=== PATIENT | female | born 1990 | race Caucasian/White ===

== ENCOUNTER 2017-08-28 17:33 | Emergency (ER) | payer OTHER ==
[~2017-08-28] VITALS: Ht 167.6 cm; Wt 72.6 kg
[2017-08-28] MEDS ORDERED: PREDNISONE20 MG PO (18:33)
== END 2017-08-28 18:46 | disposition home or self-care (01) ==
LOC: ED 17:33
DX: T78.1XXA Other adverse food reactions, not elsewhere classified, initial encounter (principal); L27.2 Dermatitis due to ingested food; Z88.1 Allergy status to other antibiotic agents
CPT/HCPCS: 99284; J7512; Q0163

== ENCOUNTER 2018-02-05 12:24 | Emergency (ER) | payer SELFPAY ==
[~2018-02-05] VITALS: Ht 167.6 cm; Wt 72.6 kg
[~2018-02-05 12:24] MED LIST: PREDNISONE20 MG PO
== END 2018-02-05 13:11 | disposition short-term general hospital (02) ==
LOC: ED 12:24
DX: S61.512A Laceration without foreign body of left wrist, initial encounter (principal); W45.8XXA Other foreign body or object entering through skin, initial encounter

== ENCOUNTER 2018-12-02 11:25 | Emergency (ER) | payer SELFPAY ==
[~2018-12-02] VITALS: Ht 167.6 cm; Wt 80.7 kg
[2018-12-02] MEDS ORDERED: HALOPERIDOL5 MG PO (14:14)
== END 2018-12-02 14:30 | disposition home or self-care (01) ==
LOC: ED 11:25
DX: R11.10 Vomiting, unspecified (principal); R10.13 Epigastric pain; Z88.1 Allergy status to other antibiotic agents
CPT/HCPCS: 80053; 81001; 83690; 84703; 85025; 96361; 96374; 96375; 99284-25; J1200; J1630; J2405; J2550; J7030

== ENCOUNTER 2020-03-01 17:39 | Inpatient (IN) | payer OTHER ==
[~2020-03-01] VITALS: Ht 167.6 cm; Wt 110.0 kg
--- NOTE | ~2020-03-01 | OR ---
[facility] [address], [place] [address] Draft DATE OF OPERATION: 03/03/2020 SURGEON: Jarred Moura DO PREOPERATIVE DIAGNOSES: 1. Intrauterine at 39 weeks and 2 days gestation. 2. Failure to descend. 3. Persistent OP positioning. 4. Suspected macrosomia. 5. Obesity. POSTOPERATIVE DIAGNOSES: 1. Intrauterine at 39 weeks and 2 days gestation. 2. Failure to descend. 3. Persistent OP positioning. 4. Suspected macrosomia. 5. Obesity. PROCEDURE PERFORMED: Primary low transverse delivery. ANESTHESIA: Epidural. DOMINATRIX: Anthony Kamara MD. ESTIMATED BLOOD LOSS: 750 mL. FINDINGS: Viable male , 8 pounds 14 ounces with Apgars of 6 and 8 with nuchal x2, delivered in the occiput posterior positioning with significant molding of the vertex. Normal uterus, tubes, and ovaries. COMPLICATIONS: None. INDICATIONS: Ms. Turner is a very pleasant 29-year-old, G1, P0, white female, who presents to Labor PATIENT NAME: RUTH TURNER OPERATIVE REPORT DATE OF : [birth year] REPORT #: [id number] PHYSICIAN: JARRED MOURA DO PCP: NO PRIMARY CARE PHYSICIAN REPORT IS CONFIDENTIAL AND NOT TO BE RELEASED WITHOUT AUTHORIZATION [facility] [address] [place] [id number] Draft and Delivery for scheduled induction of labor. complicated by obesity and suspected macrosomia. She received Cytotec ripening and AROM was performed. She progressed to 9 cm, but remained at 9 cm for an extended period of time. IUPC was then placed and contractions were found to be inadequate and contractions were then augmented with IV Pitocin. Contractions then adequate and the patient progressed to 10 cm. She pushed with contractions for nearly an hour and no descent was noted. Persistent OP positioning was observed and gentle attempts at rotating the vertex were unsuccessful. Decision was made to proceed with primary low transverse delivery. Risks, benefits, and alternatives were discussed in detail with the patient. The patient understands and wished to proceed with the procedure. DESCRIPTION OF PROCEDURE: The patient was taken to the operating room, where a time-out was performed to confirm correct patient, correct procedure. Epidural anesthetic was already in place and was bolused and found to be adequate. Ancef 2 g IV were given preoperatively and no heparin was indicated. Rodriguez catheter was previously in place. The patient was then prepped and draped in the supine position with a bump under the right hip. Once epidural anesthetic was found to be adequate, a Pfannenstiel skin incision was made and carried down to the fascia. The fascia was nicked in the midline. Fascial incision was extended bilaterally using Farley scissors. Fascia was grasped with Frederic's, elevated, and the underlying rectus muscles were dissected off bluntly and sharply. Rectus muscles were divided in the midline and the peritoneum were grasped with hemostats, elevated and entered sharply. Peritoneal incision was extended cephalad, caudad using blunt and sharp dissection. The uterus was palpated and found to be normal without adhesions. An Damien self retractor was placed. The lower uterine segment identified. Hysterotomy was performed using a surgical scalpel for moderate amount of clear fluid. The surgeon's hand was placed in the uterine cavity, the head elevated into the abdomen and delivered with the assistance of fundal pressure. Persistent occiput positioning was again noted and nuchal x2 was noted. This was easily reduced and the remainder of the was delivered with the assistance of fundal pressure. The was vigorous, cried at delivery. Cord was doubly clamped and cut, and the handed to the awaiting Pediatric team for further care. Cord blood was obtained and the placenta was manually expressed intact with a centrally inserted 3-vessel cord. The uterus was cleared of any remaining products of conception or clot. Hysterotomy was then repaired using 0 Vicryl in a running locked manner with a second imbricating stitch in a vertical manner both with 0 Vicryl. The patient was given Pitocin per protocol once the placenta had delivered. The pelvis was irrigated. Small amount of oozing was noted in the midline, this was made hemostatic with a pvenfy-id-symnk of 0 Vicryl. The serosal edges were noted to be oozing, these were made hemostatic with Bovie electrocautery. The pelvis was again irrigated and found to be hemostatic. Normal ovaries and fallopian tubes were noted bilaterally. The Damien self retractor was removed and the lower segment again noted to be hemostatic. ACell sheet was applied to PATIENT NAME: RUTH TURNER OPERATIVE REPORT DATE OF : 91 REPORT #: [id number] PHYSICIAN: JARRED MOURA DO PCP: NO PRIMARY CARE PHYSICIAN REPORT IS CONFIDENTIAL AND NOT TO BE RELEASED WITHOUT AUTHORIZATION [facility] [address], [place] [address] Draft the lower uterine segment. Peritoneum was reapproximated using 2-0 Vicryl in a running nonlocked manner. The rectus was reapproximated using 0 Vicryl in 3 interrupted sutures of 0 Vicryl. Rectus was noted to be hemostatic and ACell powder was applied to the rectus sheath. Fascia was then reapproximated using 0 Vicryl in a running nonlocked manner. Subcu was examined and made hemostatic with Bovie electrocautery and then irrigated. Hemostasis was confirmed and subcu was reapproximated using 2-0 Vicryl in a running nonlocked manner. Skin was reapproximated using surgical thomas. The uterus was Crede'd for scant amount of blood and the patient was taken to PACU in good and stable condition. Sponge, needle, and instrument counts were correct x2 at the end of the procedure. Dr. Kamara was present and participated in all portions of procedure. Jarred Moura DO JDW/MODL /[id number] Copies: ~ PATIENT NAME: RUTH TURNER OPERATIVE REPORT DATE OF : 91 REPORT #: [id number] PHYSICIAN: JARRED MOURA DO PCP: NO PRIMARY CARE PHYSICIAN REPORT IS CONFIDENTIAL AND NOT TO BE RELEASED WITHOUT AUTHORIZATION
[~2020-03-01 17:39] MED LIST changes: +HALOPERIDOL5 MG PO
[2020-03-02] MEDS ORDERED: VITAFOL-OB+DHA1 EACH PO (01:08)
--- NOTE | 2020-03-02 12:27 | PR ---
[facility] [address] [place], [place] [address] Signed Progress Notes IP Datetime Report Generated by KENAN: 03/02/2020 12:27 PROGRESS NOTES: [id number] Impression: Normal progression of labor; Reactive non-stress test Procedures: Artificial ROM; Sterile Vag Exam Plan: Continue present management Informed Consent Obtain: Vaginal Delivery VITAL SIGNS: [id number] Vital Signs: Reviewed; Within Normal Limits EXAM: [id number] Dilatation: 3.0 Effacement: 70 Station: -2 Uterine Contractions: q 2-3 min MEMBRANES: [id number] Comments: Pt seen and examined. Doing well. Mild cramping. No bleeding or LOF. Cervix now ripe. Discussed AROM and pt understands and agrees. vertex confirmed well applied to cervix. AROM performed for moderate amount clear fluid. Mother and baby tolerated well. Expectantly manage. Discussed indications for pitocin augmentation if required. All questions answered Fetus A: [id number] FHR Baseline: 140 Variability: Moderate 6-25bpm Accelerations: 15X15 Decelerations: None FHR Category: Category I Presentation: Vertex Other Presentation: KYLE Comments on Fetus A: No evidence of metabolic acidosis Fetus B: [id number] Signing Physician: Jarred Moura DO Copies: ~ *Electronically Signed* 03/02/20 1227 JARRED MOURA DO PATIENT NAME: RUTH TORRE PROGRESS NOTE DATE OF : 91 PHYSICIAN: JARRED MOURA DO RPT #: [id number] REPORT IS CONFIDENTIAL AND NOT TO BE RELEASED WITHOUT AUTHORIZATION
--- NOTE | 2020-03-02 20:40 | PR ---
[facility] [address] [place], [place] [address] Signed Progress Notes IP Datetime Report Generated by KENAN: 03/02/2020 20:40 PROGRESS NOTES: [id number] Impression: Normal progression of labor; Reassuring heart rate Procedures: Sterile Vag Exam Plan: Continue present management; Anticipate Vaginal Delivery Informed Consent Obtain: Vaginal Delivery VITAL SIGNS: [id number] Vital Signs: Reviewed VS Notable Details: Mild tachycardia EXAM: [id number] Dilatation: 9.5 Effacement: 90 Station: -1 Uterine Contractions: q 2-3 minutes MEMBRANES: [id number] Comments: Pt seen and examined. Doing well. Comfortable w/ epidural. FHT reassuring and vertex descending into the pelvis with some minimal caput. Reviewed recent US, EFW, and anticipated course of labor. Will continue maternal repositioning. All questions answered. Fetus A: [id number] FHR Baseline: 140 Variability: Moderate 6-25bpm Accelerations: 15X15 Decelerations: None FHR Category: Category I Presentation: Vertex Other Presentation: KYLE Comments on Fetus A: No evidence of metabolic acidosis Fetus B: [id number] Signing Physician: Jarred Moura DO Copies: ~ *Electronically Signed* 03/02/202039 JARRED MOURA DO PATIENT NAME: RUTH TORRE PROGRESS NOTE DATE OF : 91 PHYSICIAN: JARRED MOURA #: [id number] REPORT IS CONFIDENTIAL AND NOT TO BE RELEASED WITHOUT AUTHORIZATION
--- NOTE | 2020-03-02 22:04 | PR ---
[facility] [address] [place], [place] [address] Signed Progress Notes IP Datetime Report Generated by KENAN: 03/02/2020 22:04 PROGRESS NOTES: [id number] Impression: Normal progression of labor; Reassuring heart rate; Slow Progression of Labor Procedures: Intrauterine Pressure Catheter; Sterile Vag Exam Plan: Continue present management Informed Consent Obtain: Vaginal Delivery Other Informed Consents: Reviewed indications for if needed VITAL SIGNS: [id number] Vital Signs: Reviewed VS Notable Details: Mild tachycardia EXAM: [id number] Dilatation: 9.0 Effacement: 90 Station: -1 Uterine Contractions: q 3 minutes MEMBRANES: [id number] Comments: Pt seen and examined. Doing well. Comfortable w/ contractions. Again no change noted on cervix exam. Discussed slow rate of cervical change. Reviewed pelvis feels adequate as well as size. Recommended IUPC to evaluate for adequacy of uterine contractions. Pt understands and agrees. IUPC placed without difficulty. Discussed if contractions and no cervical change noted in the near future, would need to consider delivery via primary LTCS. If ctxs inadequate and no cervical change, would augment w/ pitocin. All questions answered to best of my ability and to pts apparent satisfaction. Fetus A: [id number] FHR Baseline: 140 Variability: Moderate 6-25bpm Accelerations: 15X15 Decelerations: None FHR Category: Category I Presentation: Vertex Other Presentation: ROT Comments on Fetus A: No evidence of metabolic acidosis Fetus B: [id number] Signing Physician: Jarred Moura DO *Electronically Signed* 03/02/204 MOURA,JARRED Messer DO PATIENT NAME: RUTH TORRE PROGRESS NOTE DATE OF : 91 PHYSICIAN: JARRED MOURA DO RPT #: [id number] REPORT IS CONFIDENTIAL AND NOT TO BE RELEASED WITHOUT AUTHORIZATION [address] [place] [address] Signed Copies: ~ *Electronically Signed* 03/02/202203 MOURA,JARRED Messer DO PATIENT NAME: RUTH TORRE CONY PROGRESS NOTE DATE OF : 91 PHYSICIAN: JARRED MOURA DO RPT #: [id number] REPORT IS CONFIDENTIAL AND NOT TO BE RELEASED WITHOUT AUTHORIZATION
--- NOTE | 2020-03-02 22:15 | PR ---
[facility] [address] [place], [place] [address] Signed Progress Notes IP Datetime Report Generated by CPN: 03/02/2020 22:15 PROGRESS NOTES: [id number] Impression: Reassuring heart rate Other Impressions: Inadequate CTXs Procedures: Intrauterine Pressure Catheter; Sterile Vag Exam Plan: Augmentation Informed Consent Obtain: Vaginal Delivery Other Informed Consents: Reviewed indications for if needed VITAL SIGNS: [id number] Vital Signs: Reviewed VS Notable Details: Mild tachycardia EXAM: [id number] Dilatation: 9.0 Effacement: 90 Station: -1 Uterine Contractions: q 3 minutes MEMBRANES: [id number] Comments: Pt seen and evaluated. Reviewed CTXs inadequate as well as reassuring FHT. Recommended initation of low dose pitocin per protocol. Pt and partner understand and agree. Fetus A: [id number] FHR Baseline: 140 Variability: Moderate 6-25bpm Accelerations: 15X15 Decelerations: None FHR Category: Category I Presentation: Vertex Other Presentation: ROT Comments on Fetus A: No evidence of metabolic acidosis Fetus B: [id number] Signing Physician: Jarred Moura DO Copies: ~ *Electronically Signed* 03/02/20 4642 JARRED MOURA DO PATIENT NAME: RUTH TORRE PROGRESS NOTE DATE OF : 91 PHYSICIAN: JARRED MOURA #: [id number] REPORT IS CONFIDENTIAL AND NOT TO BE RELEASED WITHOUT AUTHORIZATION
--- NOTE | 2020-03-03 01:11 | PR ---
[facility] [address] [place], [place] [address] Signed Progress Notes IP Datetime Report Generated by KENAN: 03/03/2020 01:11 PROGRESS NOTES: [id number] Impression: Reassuring heart rate; Slow Progression of Labor Other Impressions: Inadequate CTXs Procedures: Sterile Vag Exam Plan: Continue present management; Anesthesia consult Informed Consent Obtain: Vaginal Delivery; Section Delivery Other Informed Consents: Reviewed indications for if needed VITAL SIGNS: [id number] Vital Signs: Reviewed VS Notable Details: slightly elevated bps w/ discomfort EXAM: [id number] Dilatation: 9.5 Effacement: 100 Station: 0 Uterine Contractions: q 2-4 min MEMBRANES: [id number] Comments: Pt seen and examined. Becoming much more uncomfortable w/ contractions and requesting rebolus of epidural. Exam shows station significantly lower with small rim of easily reducible cervix posteriorily. Discussed prolonged labor, however ctxs have been borderline adequate with pitocin. Again pelvis feels adequate. Discussed options for continued trial of labor vs , and pt and partner would like to continue with trial of labor. Discussed risks of shoulder dystocia. Will monitor second stage of labor closely. Pt understands and agrees. Anesthsia notified and en route to evaluate pt. Fetus A: [id number] FHR Baseline: 130 Variability: Moderate 6-25bpm Accelerations: 15X15 Decelerations: None FHR Category: Category I Presentation: Vertex Other Presentation: KYLE Comments on Fetus A: No evidence of metabolic acidosis Fetus B: [id number] Signing Physician: Jarred Moura DO *Electronically Signed* 03/03/20 0111 JARRED MOURA DO PATIENT NAME: RUTH TORRE PROGRESS NOTE DATE OF : 91 PHYSICIAN: JARRED MOURA DO RPT #: [id number] REPORT IS CONFIDENTIAL AND NOT TO BE RELEASED WITHOUT AUTHORIZATION [facility] [address] [place] [address] Signed Copies: ~ *Electronically Signed* 03/03/20 0111 JARRED MOURA DO PATIENT NAME: RUTH TORRE PROGRESS NOTE DATE OF : 91 PHYSICIAN: JARRED MOURA DO RPT #: [id number] REPORT IS CONFIDENTIAL AND NOT TO BE RELEASED WITHOUT AUTHORIZATION
--- NOTE | 2020-03-03 01:12 | PR ---
[facility] [address] [place], [place] [address] Signed Progress Notes IP Datetime Report Generated by KENAN: 03/03/2020 01:12 PROGRESS NOTES: [id number] Impression: Reassuring heart rate; Slow Progression of Labor Other Impressions: Inadequate CTXs Procedures: Sterile Vag Exam Plan: Continue present management; Anesthesia consult Informed Consent Obtain: Vaginal Delivery; Section Delivery Other Informed Consents: Reviewed indications for if needed VITAL SIGNS: [id number] Vital Signs: Reviewed VS Notable Details: slightly elevated bps w/ discomfort EXAM: [id number] Dilatation: 9.5 Effacement: 100 Station: 0 Uterine Contractions: q 2-4 min MEMBRANES: [id number] Comments: Pt seen and examined. Becoming much more uncomfortable w/ contractions and requesting rebolus of epidural. Exam shows station significantly lower with small rim of easily reducible cervix posteriorily. Discussed prolonged labor, however ctxs have been borderline adequate with pitocin. Again pelvis feels adequate. Discussed options for continued trial of labor vs , and pt and partner would like to continue with trial of labor. Discussed risks of shoulder dystocia. Will monitor second stage of labor closely. Pt understands and agrees. Anesthsia notified and en route to evaluate pt. Fetus A: [id number] FHR Baseline: 130 Variability: Moderate 6-25bpm Accelerations: 15X15 Decelerations: None FHR Category: Category I Presentation: Vertex Other Presentation: KYLE Comments on Fetus A: No evidence of metabolic acidosis Fetus B: [id number] Signing Physician: Jarred Moura DO *Electronically Signed* 03/03/20 0112 JARRED MOURA DO PATIENT NAME: RUTH TORRE PROGRESS NOTE DATE OF : 91 PHYSICIAN: JARRED MUORA DO RPT #: [id number] REPORT IS CONFIDENTIAL AND NOT TO BE RELEASED WITHOUT AUTHORIZATION [facility] [address] [place] [address] Signed Copies: ~ *Electronically Signed* 03/03/20 0112 JARRED MOURA DO PATIENT NAME: RUTH TORRE PROGRESS NOTE DATE OF : 91 PHYSICIAN: JARRED MOURA DO RPT #: [id number] REPORT IS CONFIDENTIAL AND NOT TO BE RELEASED WITHOUT AUTHORIZATION
--- NOTE | 2020-03-03 02:00 | PR ---
[place] [facility] [address] [place], [place] [address] Signed Progress Notes IP Datetime Report Generated by CPChidi: 03/03/2020 02:00 PROGRESS NOTES: [id number] Impression: Reassuring heart rate; Slow Progression of Labor Other Impressions: Inadequate CTXs Procedures: Sterile Vag Exam Plan: Continue present management; Anticipate Vaginal Delivery Informed Consent Obtain: Vaginal Delivery Other Informed Consents: Reviewed indications for if needed VITAL SIGNS: [id number] Vital Signs: Reviewed VS Notable Details: Mild tachycardia EXAM: [id number] Dilatation: 10.0 Effacement: 100 Station: 1 Uterine Contractions: Irregular MEMBRANES: [id number] Comments: Pt seen and examined. Doing well. Comfortable w/ contractions. Pt now complete and +1 station. Moderate caput noted. Will start pushing and monitor progress closely. Fetus A: [id number] FHR Baseline: 125 Variability: Moderate 6-25bpm Accelerations: 15X15 Decelerations: Variable FHR Category: Category II Presentation: Vertex Other Presentation: KYLE Comments on Fetus A: No evidence of metabolic acidosis Fetus B: [id number] Signing Physician: Jarred Moura DO Copies: ~ *Electronically Signed* 03/03/20 0200 JARRED MOUAR DO PATIENT NAME: RUTH TORRE PROGRESS NOTE DATE OF : 91 PHYSICIAN: JARRED MOURA #: [id number] REPORT IS CONFIDENTIAL AND NOT TO BE RELEASED WITHOUT AUTHORIZATION
--- NOTE | 2020-03-03 03:03 | PR ---
[facility] [address] [place], [place] [address] Signed Progress Notes IP Datetime Report Generated by KENAN: 03/03/2020 03:03 PROGRESS NOTES: [id number] Impression: Arrest of dilatation/descent; Reassuring heart rate Other Impressions: Inadequate CTXs Procedures: Sterile Vag Exam Plan: Deliver- Section Informed Consent Obtain: Section Delivery; Risks, Benefits and Alternatives Discussed Other Informed Consents: Reviewed indications for if needed VITAL SIGNS: [id number] Vital Signs: Reviewed; Within Normal Limits VS Notable Details: Mild tachycardia EXAM: [id number] Dilatation: 10.0 Effacement: 100 Station: -1 Uterine Contractions: q 2-4 MEMBRANES: [id number] Comments: Pushed w/ pt for nearly one hour. No descent with adequate pushing effort noted and caput significantly increased. Persistant OP positioning noted despite efforts to encourage rotation of the vertex. Reviewed course of labor, suspected macrosomia, and no progress w/ pushing. Recommended primary low transverse delivery. Pt and partner understand and agree. Reviewed risks and benefits in detail, including but not limited to infection, bleeding, injury to surrounding GI/ structures, and risks in future pregnancies including repeat and risk of abnormal placentation. Consents signed. Fetus A: [id number] FHR Baseline: 130 Variability: Moderate 6-25bpm Accelerations: 15X15 Decelerations: None FHR Category: Category I Presentation: Vertex Other Presentation: KYLE Comments on Fetus A: No evidence of metabolic acidosis Fetus B: [id number] Signing Physician: Jarred Moura DO *Electronically Signed* 03/03/20 030 JARRED MOURA DO PATIENT NAME: RUTH TORRE PROGRESS NOTE DATE OF : 91 PHYSICIAN: JARRED MOURA DO RPT #: [id number] REPORT IS CONFIDENTIAL AND NOT TO BE RELEASED WITHOUT AUTHORIZATION [facility] [address] [place] [address] Signed Copies: ~ *Electronically Signed* 03/03/20302 MOURAJARRED DO PATIENT NAME: RUTH TORRE PROGRESS NOTE DATE OF : 91 PHYSICIAN: JARRED MOURA DO RPT #: [id number] REPORT IS CONFIDENTIAL AND NOT TO BE RELEASED WITHOUT AUTHORIZATION
--- NOTE | 2020-03-03 04:56 | NUR ---
03/03/20 0456 Penny Barksdale 0445-PATIENT ARRIVED BACK TO ROOM 105 FOR PACU RECOVERY. PATIENT AWAKE DENIES PAIN OR NAUSEA. LR WITH PITOCIN INFUSING TO RIGHT HAND. NELSON DRAINING URINE. FUNDUS MIDLINE AT UMBILICUS LIGHT RUBRA DRAINAGE ON CHRISTIAN PAD. AT BEDSIDE. SR. RA 98% RR EVEN 0455-SPINAL AT T10. PATIENT AWAKE DENIES PAIN OR NAUSEA. TALKING TO MOM ON PHONE.
--- NOTE | 2020-03-03 10:38 | PR ---
[facility] [address] [facility] [place], [place] [address] Signed PP Progress Notes Datetime Report Generated by CPN: 03/03/2020 10:38 SUBJECTIVE: [id number] Pain: Within normal limits Nausea/Vomiting: Denies Flatus: Yes Bowel Movement: No Vital Signs: [id number] Vital Signs: Reviewed; Within Normal Limits EXAM: [id number] Cardiovascular: Normal Respiratory: Normal Abdomen/Uterus: Normal Lochia: Normal Vulva/Perineum: Not Done Breasts: Normal CVA Tenderness: Normal Extremities: Normal Incision: Normal Progress: Normal Exam Comments: Fundus firm U-2 nontender IMPRESSION/PLAN/PROCEDURES: [id number] Impression: Normal progression Plan: Continue present management Signing Physician: Jarred Moura DO Copies: ~ *Electronically Signed* 03/03/20 1038 JARRED MOURA DO PATIENT NAME: RUTH TORRE PROGRESS NOTE DATE OF : 91 PHYSICIAN: JARRED MOURA DO RPT #: [id number] REPORT IS CONFIDENTIAL AND NOT TO BE RELEASED WITHOUT AUTHORIZATION
--- NOTE | 2020-03-04 10:15 | PR ---
[facility] [address] [place] [facility] [place] [address] Signed PP Progress Notes Datetime Report Generated by CPN: 03/04/2020 10:15 SUBJECTIVE: [id number] Pain: Within normal limits Nausea/Vomiting: Denies Flatus: Yes Bowel Movement: No Vital Signs: [id number] Vital Signs: Reviewed EXAM: [id number] Cardiovascular: Normal Respiratory: Normal Abdomen/Uterus: Normal Lochia: Normal Vulva/Perineum: Not Done Breasts: Not Done CVA Tenderness: Normal Extremities: Normal Incision: Normal Progress: Normal Exam Comments: Fundus firm U-2 nontender IMPRESSION/PLAN/PROCEDURES: [id number] Impression: Normal progression Plan: Discharge Signing Physician: Jarred Moura DO Copies: ~ *Electronically Signed* 03/04/20 1015 JARRED MOURA DO PATIENT NAME: RUTH TORRE PROGRESS NOTE DATE OF : 91 PHYSICIAN: JARRED MOURA DO RPT #: [id number] REPORT IS CONFIDENTIAL AND NOT TO BE RELEASED WITHOUT AUTHORIZATION
== END 2020-03-04 12:43 | disposition home or self-care (01) | DRG 787 ==
LOC: EDBD → FBC 03-02 00:06
PROVIDERS: ADMIT Obstetrics & Gynecology
PROC: 10907ZC Drainage of Amniotic Fluid, Therapeutic from Products of Conception, Via Natural or Artificial Opening (ICD-10-PCS; 2020-03-02)
PROC: 10H07YZ Insertion of Other Device into Products of Conception, Via Natural or Artificial Opening (ICD-10-PCS; 2020-03-02)
PROC: 3E0P7VZ Introduction of Hormone into Female Reproductive, Via Natural or Artificial Opening (ICD-10-PCS; 2020-03-02)
PROC: 00HU33Z Insertion of Infusion Device into Spinal Canal, Percutaneous Approach (ICD-10-PCS; 2020-03-02)
PROC: 3E0R3BZ Introduction of Anesthetic Agent into Spinal Canal, Percutaneous Approach (ICD-10-PCS; 2020-03-02)
PROC: 10D00Z1 Extraction of Products of Conception, Low, Open Approach (ICD-10-PCS; principal; 2020-03-03 03:55)
DX: O36.63X0 Maternal care for excessive fetal growth, third trimester, not applicable or unspecified (principal); O99.324 Drug use complicating childbirth; O63.9 Long labor, unspecified; Z3A.39 39 weeks gestation of pregnancy; Z37.0 Single live birth; O76 Abnormality in fetal heart rate and rhythm complicating labor and delivery; O69.81X0 Labor and delivery complicated by cord around neck, without compression, not applicable or unspecified; O99.214 Obesity complicating childbirth; E66.9 Obesity, unspecified; F12.90 Cannabis use, unspecified, uncomplicated; O34.43 Maternal care for other abnormalities of cervix, third trimester; O62.1 Secondary uterine inertia; O32.4XX0 Maternal care for high head at term, not applicable or unspecified; Z88.8 Allergy status to other drugs, medicaments and biological substances
CPT/HCPCS: 01961; 36415; 85027; A9270; J0690; J1650; J1885; J2001; J2274; J2370; J2405; J2590; J2795; J7121

== ENCOUNTER 2020-04-13 19:52 | Emergency (ER) | payer OTHER ==
[~2020-04-13] VITALS: Ht 167.6 cm; Wt 90.7 kg
[~2020-04-13 19:52] MED LIST changes: +VITAFOL-OB+DHA1 EACH PO
[2020-04-13] MEDS ORDERED: PROTONIX40 MG PO (20:51)
[2020-04-13] MEDS ORDERED: ZOFRAN4 MG PO (20:51)
== END 2020-04-13 20:58 | disposition home or self-care (01) ==
LOC: ED 19:52
DX: O99.63 Diseases of the digestive system complicating the puerperium (principal); K29.70 Gastritis, unspecified, without bleeding
CPT/HCPCS: 80053; 84703; 85025; 85610; 85730; 96374; 99284-25; C9113

== ENCOUNTER 2022-08-01 11:39 | Emergency (ER) | payer OTHER ==
[~2022-08-01] VITALS: Ht 167.6 cm; Wt 90.7 kg
[~2022-08-01 11:39] MED LIST changes: +PROTONIX40 MG PO; +ZOFRAN4 MG PO
--- OUTSIDE RECORDS SUMMARY | 2022-08-01 11:42 | XMS ---
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 Paco has no Care Guidelines for this patient. Ivy VISIT COUNT (12 MO.) 1 DON [place] TOTAL 1 NOTE: Visits indicate total known visits. ED/C VISIT TRACKING (12 MO.) 08/01/2022 11:40 [facility] [place] TYPE: Emergency COMPLAINT: - FEVER, EAR PAIN, VOMITING, BROWN URINE INPATIENT VISIT TRACKING (12 MO.) No inpatient visits to display in this time frame [email or web address]
[2022-08-01] MEDS ORDERED: CLONAZEPAM0.5 MG PO (12:08)
[2022-08-01] MEDS ORDERED: ONDANSETRON ODT8 MG PO (13:31)
[2022-08-01] MEDS ORDERED: ZITHROMAX250 MG PO (13:31)
== END 2022-08-01 14:13 | disposition home or self-care (01) ==
LOC: ED 11:39
DX: J10.00 Influenza due to other identified influenza virus with unspecified type of pneumonia (principal); Z88.1 Allergy status to other antibiotic agents
CPT/HCPCS: 36415; 71045; 80053; 85025; 96374; 96375; 99284-25; J1885; J2405; J7030